=== PATIENT | female | born 1970 | race Caucasian/White ===

== ENCOUNTER 2023-06-27 08:01 | Outpatient (CLI) | payer MEDICAID, SELFPAY ==
--- NOTE | 2023-06-27 08:08 | CT_ITS ---
WS: [id number] CT NECK WITH CONTRAST HISTORY: LYMPHADENOPATHY/FATIGUE, history of melanoma. TECHNIQUE: Contiguous 2 mm axial images are performed through the neck with intravenous contrast. Sag ittal and coronal reformats are also submitted. All CT scans at [facility] use at least one o f these dose optimization techniques: automated exposure control; mA and/or kV adjustment per patient size (includes targeted exams where dose is matched to clinical indication); or iterative reconstruc tion. CONTRAST: CONTRAST: Omnipaque 350; 100 mL IV. DLP: 163.50 mGy.cm COMPARISON: None available. Nasopharynx, oropharynx, hypopharynx and larynx are unremarkable. No soft tissue masses or abnormal e nhancement. Artifact through the tongue base by dental amalgam. Torus tubarius and fossa of Rosenmuller and parapharyngeal fat are normal. No significant lymphadenopathy is identified. Bilateral thyroid nodules. Largest nodule in the central RIGHT thyroid measures 8 mm. Cervical spondylosis. No destructive lesions. Visualized portions of the skull base demonstrate no abnormalities. Orbits and globes are within norm al limits. No soft tissue masses. Air-fluid level RIGHT sphenoid sinus. Centrilobular emphysema. IMPRESSION: 1. No cervical chain lymphadenopathy. There are a few benign-appearing lymph nodes. 2. No neck mass identified or compromise of the airway. 3. Subcentimeter RIGHT thyroid nodule. This can be evaluated by thyroid ultrasound.
[2023-06-27] MEDS: iohexol 350 mg/mL 500 mL Btl (per mL) IV (08:57)
== END 2023-06-27 08:02 | disposition home or self-care (01) ==
LOC: RAD 08:01
PROVIDERS: Visit Provider Nurse Practitioner Family
DX: R59.1 Generalized enlarged lymph nodes (principal); R53.83 Other fatigue; R04.1 Hemorrhage from throat
CPT/HCPCS: 70491; Q9967

== ENCOUNTER 2023-07-10 13:27 | Outpatient (CLI) | payer MEDICAID, SELFPAY ==
--- NOTE | 2023-07-10 15:24 | USR_ITS ---
PROCEDURE INFORMATION: Exam: US Soft Tissue Head and Neck, Thyroid Exam date and time: 07/10/2023 3:30 PM Age: 52 years old Clinical indication: Condition or disease; Thyroid disorder; Other: Thyroid nodule TECHNIQUE: Imaging protocol: Real-time ultrasound scan of the neck with image documentation. Exam focused on the thyroid. COMPARISON: CT neck w con* [id number] 06/27/2023 8:46 AM FINDINGS: The right lobe measures 4.7 x 2.1 x 1.5 cm. The left lobe measures 4.7 x 1.9 x 1.5 cm. The isthmus measures 3 mm in thickness. Thyroid architecture is homogeneous. There is a 1.3 x 1.2 x 0.8 cm spongiform nodule in the midpole of the right lobe. This has benign features. There is a similar spongiform nodule in the midpole of the left lobe which is smaller measuring 0.9 x 0.6 x 0.4 cm. Small cysts are also seen bilaterally which may represent colloid cysts. Small cervical lymph nodes are seen. US/US thyroid [id number] IMPRESSION: Benign findings. No follow-up needed.
== END 2023-07-10 13:28 | disposition home or self-care (01) ==
LOC: RAD 13:27
PROVIDERS: Visit Provider Nurse Practitioner Family
DX: E04.1 Nontoxic single thyroid nodule (principal)
CPT/HCPCS: 76536

== ENCOUNTER 2023-07-17 10:55 | Outpatient (CLI) | payer MEDICAID, SELFPAY ==
--- NOTE | 2023-07-17 11:00 | MM_ITS ---
WS: [id number] BILATERAL 3D TOMOSYNTHESIS DIGITAL SCREENING MAMMOGRAPHY WITH CAD CLINICAL INFORMATION: SCREENING HISTORY: Screening mammogram. No current complaints. COMPARISON: None. TECHNIQUE: Bilateral CC and MLO views. FINDINGS: The breasts are composed of heterogeneous fibroglandular density tissue, which can limit the detectio n of small underlying mass lesions. No suspicious mass, asymmetry, calcifications, or architectural d istortion. No evidence of malignancy. Dystrophic calcification upper outer RIGHT breast. Additional d ystrophic calcifications central RIGHT breast. A few incidental punctate calcifications bilaterally. MM/[place] [id number] IMPRESSION: BI-RADS: 2-Benign FOLLOW UP: 1 Year Follow-up Recommend return to annual screening mammography.
== END 2023-07-17 10:56 | disposition home or self-care (01) ==
LOC: MOBLMAM 11:05
PROVIDERS: PCP Nurse Practitioner Family; Visit Provider Nurse Practitioner Family
DX: Z12.31 Encounter for screening mammogram for malignant neoplasm of breast (principal)
CPT/HCPCS: 77063; 77067

== ENCOUNTER 2023-08-24 08:13 | Outpatient (CLI) | payer MEDICAID, SELFPAY ==
--- NOTE | 2023-08-24 08:17 | CTR_ITS ---
PROCEDURE INFORMATION: Exam: CT Abdomen Without And With Contrast Exam date and time: 08/24/2023 8:41 AM Age: 53 years old Clinical indication: Condition or disease; Other: Benign neoplasm of skin; Primary cancer: Melanoma no chemo/radiation; Prior surgery; Surgery date: 6+ months; Surgery type: Spots recently removed from trunk, appy, partial hysterectomy; Additional info: Benign neoplasm of skin of trunk/hemangioma of skin TECHNIQUE: Imaging protocol: Computed tomography of the abdomen without and with contrast. Radiation optimization: All CT scans at this facility use at least one of these dose optimization techniques: automated exposure control; mA and/or kV adjustment per patient size (includes targeted exams where dose is matched to clinical indication); or iterative reconstruction. Contrast material: OMNI 350; Contrast volume: 95 ml; Contrast route: INTRAVENOUS (IV); COMPARISON: No relevant prior studies available. RADIATION DOSE METRICS: Total DLP (mGy-cm): 686 FINDINGS: Liver: Multiple hepatic cysts measuring up to 3.5 cm. No suspicious hepatic masses. Gallbladder and biliary ducts: The gallbladder is unremarkable. No biliary ductal dilatation. Pancreas: The pancreas is unremarkable. Spleen: Multiple small coarse calcifications within the spleen, likely secondary to prior granulomatous disease. Adrenal glands: The adrenal glands are unremarkable. Kidneys and ureters: Kidneys are normal. No hydronephrosis or nephrolithiasis. Stomach and bowel: Normal CT appearance of stomach and bowel. Appendix: Not visualized. Likely outside of the field of view. Intraperitoneal space: No free fluid in the abdomen. Vasculature: Minimal scattered calcific disease of the abdominal aorta. No abdominal aortic aneurysm. Lymph nodes: No pathologically enlarged lymphadenopathy in the visualized portions of the abdomen. Urinary bladder: Not imaged. Reproductive: Not imaged. Bones/joints: No acute osseous findings in the visualized skeleton. Soft tissues: Visualized superficial soft tissues are within normal limits. CT/CT abdomen wo/w con [id number] IMPRESSION: No acute findings in the abdomen.
[2023-08-24] MEDS: iohexol 350 mg/mL 500 mL Btl (per mL) IV (08:46)
== END 2023-08-24 08:14 | disposition home or self-care (01) ==
LOC: RAD 08:14
PROVIDERS: PCP Nurse Practitioner Family; Visit Provider Dermatology
DX: D23.5 Other benign neoplasm of skin of trunk (principal); K76.89 Other specified diseases of liver; D73.89 Other diseases of spleen
CPT/HCPCS: 74170; Q9967